=== PATIENT | female | born 1990 | race African-American/Black ===

== ENCOUNTER → 2020-12-02 13:24 | Outpatient (BNVA) | payer OTHER, SELFPAY | PROVIDERS: Visit Provider Obstetrics & Gynecology ==

== ENCOUNTER → 2020-12-27 15:15 | Outpatient (BNVA) | payer OTHER, SELFPAY | PROVIDERS: Visit Provider Obstetrics & Gynecology | DX: Z30.09 Encounter for other general counseling and advice on contraception (principal) | CPT/HCPCS: 99212 ==

== ENCOUNTER 2021-01-02 11:07 | Day surgery (SDC) | payer OTHER, SELFPAY ==
[2020-12-26 12:25] VITALS: BMI 30.1
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
[2021-01-02 11:26] VITALS: BP 118/79; PULSE 64; RESP 16; TEMP 36.7; O2SAT 97
[2021-01-02 11:31] LABS: UPreg QC Valid YES; Urine Pregnancy NEGATIVE (NEGATIVE)
[2021-01-02] MEDS: Lactated Ringers 1,000 ML 100 ML IVCONT (11:45)
[2021-01-02] MEDS: Acetaminophen 325 MG TABLET 650 MG PO (11:46)
--- NOTE | 2021-01-02 13:21 | P.OP_ITS ---
Operative Note Operative Note Date of Service: 01/02/21 Narrative: Pre-Procedure Diagnosis: unwanted fertility Post-Procedure Diagnosis: unwanted fertility Procedures performed: Laparoscopic bilateral tubal ligation with cautery Data Systems Manager: none Complications: none Specimens: none Disposition: Pacu Ms. Brito is a 30yo who has completed her family planning and desires a permanent form of sterilization. Surgical Risks: The patient was informed of the risks and benefits of the pro cedure. Risks included but were not limited to bleeding, infection, injury to the vulva, vagina, or cervix, and uterine perforation. The patient was counseled on the risk of sterilization failure being about 1% on average. The patient was informed that in the event a occurs, the risk of ectopic is increased. The patient expressed understanding of the risks involved, all questions were answered, and the patient consented to the procedure. The patient had valid sterilization consent at the time of the procedure. The patient was taken to the operating room where a time out was performed to confirm correct patient and correct procedure. General anesthesia was established. The patient was then positioned on the operating table in the dorsal lithotomy position with the legs supported using stirrups. All pressure points were padded and a warm blanket was placed to maintain control of core body temperature. The patient was then prepped and draped in the usual sterile fashion. A red rubber catheter was inserted and the bladder emptied. A sponge stick was placed in the vagina for uterine manipulation. Attention was turned to the abdomen where a 5mm vertical infraumbilical incision was made. The 5mm trocar was introduced under direct visualization using the laparoscopy within the sleeve of the trocar. After intra-abdominal placement had been confirmed, the trocar was removed leaving the sleeve in place. The camera was introduced and pneumoperitoneum was established using carbon dioxide. Inspection of the abdominal cavity showed no gross abnormalities and there was no evidence of injury to the bowel, bladder, or vasculature. Attention was turned to the pelvis. The patient was placed into Trendelenburg position. The fallopian tubes and ovaries were visualized bilaterally. []There were no abnormalities noted. A small incision was made in the midline approximately 2cm above the pubic symphysis. A 5mm trocar was introduced through this incision under direct visualization with the laparoscope. Fulguration: The fallopian tubes were inspected bilaterally and the fimbriated ends of the fallopian tube were visualized bilaterally. The right fallopian tube and mesosalpinx were grasped and cauterized using []Bipolar electrocautery. This was done with approximately three bianchi starting medially about 1cm from the cornua and working laterally. Good cautery was confirmed. Attention was then turned to the contralateral fallopian tube and mesosalpinx which was grasped about 1cm from the cornua and cauterized with three bianchi moving laterally with each cauterization. Good fulguration of both tubes was then confirmed. The pneumoperitoneum was then evacuated. The laparoscope was removed and the trocar sleeves were removed. The sponge stick was removed from the vagina. The skin incisions were closed each with a single interrupted 3-0 Vicryl suture and Dermabond was applied. Good hemostasis was confirmed. The patient was transferred to the recovery room in stable condition. All needle, sponge, and instrument counts were noted to be correct x2 at the end of the procedure.
--- NOTE | 2021-01-02 13:21 | MHC.SHP ---
Pre-Procedural Eval Section A The patient is an INPATIENT: No Changes since office visit: No Cold of Flu in the past 2 weeks, No New Medical Problems, No Changes in Medication and No Patient answered all questions The History & Physical has been completed within 30 days and I have reviewed it.: Yes Section B Chief Complaint: Unwanted Fertility Allergies: Allergies Allergy/AdvReac Type Severity Reaction Status Date / Time No Known Allergies Allergy Verified 12/27/20 15:24 Plan I have reviewed the history and physical and performed a pertinent physical examination on my patient. No changes have occurred unless specified.
[2021-01-02 14:26] VITALS: BP 130/71; PULSE 106; RESP 16; TEMP 36.2; O2SAT 98
--- NOTE | 2021-01-02 14:27 | P.OP_ITS ---
Operative Note Operative Note Date of Service: 01/02/21 Narrative: Pre-Procedure Diagnosis: unwanted fertility Post-Procedure Diagnosis: unwanted fertility Procedures performed: Laparoscopic bilateral tubal ligation with cautery Crusher And Binder Operator: none Complications: none Specimens: none Disposition: Pacu Ms. Brito is a 30yo who has completed her family planning and desires a permanent form of sterilization. Surgical Risks: The patient was informed of the risks and benefits of the pro cedure. Risks included but were not limited to bleeding, infection, injury to the vulva, vagina, or cervix, and uterine perforation. The patient was counseled on the risk of sterilization failure being about 1% on average. The patient was informed that in the event a occurs, the risk of ectopic is increased. The patient expressed understanding of the risks involved, all questions were answered, and the patient consented to the procedure. The patient had valid sterilization consent at the time of the procedure. The patient was taken to the operating room where a time out was performed to confirm correct patient and correct procedure. General anesthesia was established. The patient was then positioned on the operating table in the dorsal lithotomy position with the legs supported using stirrups. All pressure points were padded and a warm blanket was placed to maintain control of core body temperature. The patient was then prepped and draped in the usual sterile fashion. A red rubber catheter was inserted and the bladder emptied. A sponge stick was placed in the vagina for uterine manipulation. Attention was turned to the abdomen where a 5mm vertical infraumbilical incision was made. The 5mm trocar was introduced under direct visualization using the laparoscopy within the sleeve of the trocar. After intra-abdominal placement had been confirmed, the trocar was removed leaving the sleeve in place. The camera was introduced and pneumoperitoneum was established using carbon dioxide. Inspection of the abdominal cavity showed no gross abnormalities and there was no evidence of injury to the bowel, bladder, or vasculature. Attention was turned to the pelvis. The patient was placed into Trendelenburg position. The fallopian tubes and ovaries were visualized bilaterally. There were no abnormalities noted. A small incision was made on the patient's left approximately 2cm superior to and 2cm medial to the left ASIS. A 5mm trocar was introduced through this incision under direct visualization with the laparoscope. The fallopian tubes were inspected bilaterally and the fimbriated ends of the fallopian tube were visualized bilaterally. The left fallopian tube and mesosalpinx were grasped and cauterized using Bipolar electrocautery with the Ligasure device. This was done with approximately three bianchi starting medially about 1cm from the cornua and working laterally. Good cautery was confirmed. Attention was then turned to the contralateral fallopian tube and mesosalpinx which was grasped about 1cm from the cornua and cauterized with three bianchi m oving laterally with each cauterization. Good fulguration of both tubes was then confirmed. The pneumoperitoneum was then evacuated. The laparoscope was removed and the trocar sleeves were removed. The sponge stick was removed from the vagina. The skin incisions were closed each with a single interrupted 3-0 Vicryl suture and Dermabond was applied. Good hemostasis was confirmed. The patient was transferred to the recovery room in stable condition. All needle, sponge, and instrument counts were noted to be correct x2 at the end of the procedure.
[2021-01-02 14:31] VITALS: BP 128/83; PULSE 93; RESP 16; O2SAT 96
[2021-01-02] MEDS: oxyCODONE HCl Immed Release 5 MG TABLET PO (14:31)
[2021-01-02 14:36] VITALS: BP 126/78; PULSE 92; RESP 16; O2SAT 96
[2021-01-02 14:45] VITALS: BP 125/81; PULSE 89; O2SAT 96
[2021-01-02 14:52] VITALS: BP 117/76; PULSE 77; RESP 18; TEMP 36.6; O2SAT 96
== END 2021-01-02 15:34 | disposition home or self-care (01) ==
LOC: HO.SSS 11:08
PROVIDERS: Visit Provider Obstetrics & Gynecology
PROC: (CPT 58670; principal; 2021-01-02 12:50)
DX: Z30.2 Encounter for sterilization (principal); Z87.891 Personal history of nicotine dependence
CPT/HCPCS: 58670; 81025; J1100; J1170; J1885; J2250; J2405; J3010